=== PATIENT | male | born 1980 | race Caucasian/White ===

== ENCOUNTER 2024-03-21 14:03 | Emergency (ER) | payer OTHER, SELFPAY ==
[2024-03-21 14:16] VITALS: BP 144/102
--- NOTE | 2024-03-21 16:44 | ED.GENMED ---
History of Present Illness
General
Chief Complaint: Skin Problem
Source: patient
Exam Limitations: none
Time Seen by Provider: 03/21/24 16:10
Nursing documentation reviewed up to this point in time: agreed with
History of Present Illness
History of Present Illness:
43 y/o M with h/o previous abscesses
says that about 2 days ago he saw some bump left medial prox thigh and then today he now has surrounding erythema
mild discomfort
no systemic symptoms
has h/o previous I&D for abscesses, doesn't know if all were mrsa but was told one 'could have been.'
no known tick exposure
Past History
Past History
ED Past Medical History: None
ED Past Surgical History: None
Social History
Tobacco: Non-smoker
Living: with family
Employment: Employed
Review of Systems
Review of Systems
Allergies reviewed?: Yes
All Other Systems: Not applicable
Phy Exam
Physical Exam
Physical Exam:
GENERAL: Alert , in no apparent distress, comfortable at rest
NEUROLOGICAL: Alert and oriented, no focal neuro deficits, , 5/5 strength, sensation intact, ambulation slight limp right leg
SKIN: Warm and dry,
pt has a central 1 cm indurated area around hair follicle with 6 x 5 cm area of surrounding erythema/cellulitis
does not have central clearing but the center is darker
MUSCULOSKELETAL:thigh full ROM
PSYCH: Normal and appropriate interaction.
Course
Orders/Labs/Results
Orders:
Orders
03/21/24 16:49
Doxycycline [Vibramycin] 100 mg PO NOW STA
03/21/24 17:48
Lyme Progressive Urgent
Wound Culture [Wound/Abscess/Other Culture] Urgent
ELIU Source: Abscess
Specimen Description:
Date Specimen was Collected: 03/21/24
Time Specimen was Collected: 17:19
Vital Signs
Initial and Last Documented VS:
Initial Vital Signs
Temp Pulse Resp BP Pulse Ox
98.9 F 100 20 144/102 97
03/21/24 14:16 03/21/24 14:16 03/21/24 14:16 03/21/24 14:16 03/21/24 14:16
Last Documented Vital Signs
Temp Pulse Resp BP Pulse Ox
98.9 F 100 20 144/102 97
03/21/24 14:16 03/21/24 14:16 03/21/24 14:16 03/21/24 14:16 03/21/24 14:16
Procedures
Incision/Drainage/Joint Aspiration
Left Medial Proximal Thigh:
Anethesia: 1% Lidocaine with Epi
Preparation: cleaned with alcohol wipe
Type of procedure: incise
Nature of site: abscess
Description of abscess: less than 3cm
Loculations broken up: Yes
How much fluid was obtained?: scant amount
Fluid description: bloody
Treatment: left open for drainage
MDM/Problems Addressed
Differential Diagnosis Includes:
abscess, ECM, cellulitis
MDM/Problems Addressed:
43 y/o M with h/o abscesses, u nlikley mrsa (only culture here was strep agalactiae)
here with left thigh redness, small area of induration in the center with surroudnign erythema
mostly nontender
no fever
is unaware of lyme
the surrounding erythema does look airport tower controller than central
will test for lyme
in tmeantime, small incision in the indurated area to open
warm compresses
ine drawn around the redness
wound culture
doxy empirically for lyme a swell as cellulitis
*Critical Care Note
Total Time (30-74mins, 75-104mins- exclusive of procedures): Not Applicable
ED Attending Note
-
Portions of this chart may have been created with voice recognition software.� Occasional wrong word or��sound alike� substitutions may have occurred due to the inherent limitations of voice recognition software.
Discharge Plan
Departure
Patient Disposition: Home (Routine Discharge)
Date of Disposition: 03/21/24
Time of Disposition: 17:43
Patient with high blood pressure during this ER visit?: Yes
Condition: Fair
Covid-19: Not Applicable
Discharge Problem:
Cellulitis, Abscess
Instructions: Cellulitis (Skin Infection), Adult (DC), Skin Abscess
Prescriptions:
New
doxycycline monohydrate 100 mg capsule
100 mg PO BID Qty: 20 0RF
No Action
clindamycin HCl 300 MG capsule
300 mg PO TID Qty: 30 0RF
Referrals:
Camelia Tobar NP [Family Provider] -
Activity Restrictions/Additional Instructions:
WE ARE TESTING THE BACTERIA IN THE WOUND TO BE TONIA EYOU ARE ON THE CORRECT MEDICATION BUT THIS ANTIBIOTIC WOULD TREAT LYME DISEASE .
IT APPEARS MORE LIKE AN ABSCESS WITH CELLULITIS. KEEP APPLYING WARM COMPRESSES TO THE AREA UNTIL HEALED
WATCH THAT THE REDNESS DOESN'T GET WORSE
RETURN FOR WORSENING REDNESS, FEVRE, WORSE PAIN ETC
OTHERWISE SEE YOUR DOCTOR FOR WOUND CHECK IN 2-3 DAYS
Interventions
Interventions:
*Risk Screen - Suicide Last Done: 03/21/24 17:31
*Neglect/Abuse Screening Last Done: 03/21/24 17:31
*Nursing Disposition Last Done: 03/21/24 18:30
ED-Skin Assessment Last Done: 03/21/24 17:31
Discharge Date and Time
Discharge Date/Time: 03/21/24 18:31
Print Language: AZERI
[2024-03-21] MEDS: VIBRAMYCIN 100 MG PO (17:46)
[2024-03-24 15:58] LABS: Lyme Antibody Screen, EIA Negative (Negative)
== END 2024-03-21 18:31 | disposition home or self-care (01) ==
LOC: EMR 14:03
PROVIDERS: Physician Assistant; EMERGENCY PHYSICIAN Emergency Medicine; FAMILY PHYSICIAN Nurse Practitioner Family
DX: L02.416 Cutaneous abscess of left lower limb (principal)
CPT/HCPCS: 99283; 10060; 86618; 87070; 87205